=== PATIENT | male | born 1990 | race Caucasian/White ===

== ENCOUNTER → 2019-05-09 | Outpatient (REF) | payer OTHER ==
[2019-05-09 12:46] LABS: ALBUMIN 4.2 GM/DL (3.2-5.2); ALT/SGPT 149 U/L (12-78); BILIRUBIN,TOTAL 0.5 MG/DL (0.2-1.0); BLOOD UREA NITROGEN 23 MG/DL (7-18); CALCIUM LEVEL 9.8 MG/DL (8.5-10.1); CARBON DIOXIDE LEVEL 25 MEQ/L (21-32); CHLORIDE LEVEL 107 MEQ/L (98-107); CREATININE FOR GFR 0.83 MG/DL (0.70-1.30); GLOMERULAR FILTRATION RATE > 60.0 (>60); GLUCOSE, FASTING 114 MG/DL (70-100); POTASSIUM SERUM 4.1 MEQ/L (3.5-5.1); SODIUM LEVEL 140 MEQ/L (136-145); TOTAL PROTEIN 7.6 GM/DL (6.4-8.2)
[2019-05-09 13:13] LABS: HEMOGLOBIN A1c 6.1 %
== END ==
LOC: M SFHCLERA 08:39
PROVIDERS: ATTEND Nurse Practitioner Family
DX: Z13.1 Encounter for screening for diabetes mellitus (principal)

== ENCOUNTER → 2020-08-14 | Outpatient (CLI) | payer OTHER ==
[2020-08-14 09:32] LABS: BASO # 0.1 10^3/uL (0.0-0.2); EOS # 0.3 10^3/uL (0.0-0.5); EOS % 3.4 % (0.0-3.0); HEMATOCRIT 46.1 % (42.0-52.0); HEMOGLOBIN 15.1 g/dl (13.5-17.5); LYMPH # 1.9 10^3/uL (1.5-5.0); LYMPH % 26.3 % (24.0-44.0); MEAN CORPUSCULAR HEMOGLOBIN 31.1 pg (27.0-33.0); MEAN CORPUSCULAR HGB CONC 32.8 g/dl (32.0-36.5); MEAN CORPUSCULAR VOLUME 94.9 fl (80.0-96.0); MONO # 0.6 10^3/uL (0.0-0.8); MONO % 8.6 % (0.0-5.0); NEUTROPHILS # 4.4 10^3/uL (1.5-8.5); NEUTROPHILS % 60.3 % (36.0-66.0); PLATELET COUNT, AUTOMATED 325 10^3/uL (150-450); RED BLOOD COUNT 4.86 10^6/uL (4.30-6.10); WHITE BLOOD COUNT 7.3 10^3/uL (4.0-10.0)
[2020-08-14 10:10] LABS: ALBUMIN 4.2 GM/DL (3.2-5.2); ALT/SGPT 109 U/L (12-78); BILIRUBIN,TOTAL 0.5 MG/DL (0.2-1.0); BLOOD UREA NITROGEN 15 MG/DL (7-18); CALCIUM LEVEL 9.1 MG/DL (8.5-10.1); CARBON DIOXIDE LEVEL 27 MEQ/L (21-32); CHLORIDE LEVEL 108 MEQ/L (98-107); CREATININE FOR GFR 0.94 MG/DL (0.70-1.30); FREE T4 0.89 NG/DL (0.76-1.46); GLOMERULAR FILTRATION RATE > 60.0 (>60); GLUCOSE, FASTING 116 MG/DL (70-100); POTASSIUM SERUM 4.4 MEQ/L (3.5-5.1); SODIUM LEVEL 141 MEQ/L (136-145); TOTAL PROTEIN 7.3 GM/DL (6.4-8.2)
[2020-08-14 11:02] LABS: HEMOGLOBIN A1c 5.7 %
== END ==
LOC: M LAB 09:11
PROVIDERS: ATTEND Nurse Practitioner Family
DX: R07.9 Chest pain, unspecified (principal); R73.03 Prediabetes

== ENCOUNTER → 2020-09-03 | Outpatient (CLI) | payer OTHER ==
--- NOTE | 2020-09-03 07:51 | REP ---
INDICATION: ELEVATED LFT COMPARISON: None. TECHNIQUE: Real time nielson scale ultrasound examination using curved array transducer. FINDINGS: Liver is hyperechoic without focal hepatic lesion.. Pancreas is incompletely evaluated due to interposed bowel gas. The gallbladder is normal and without gallstones, wall thickening, or pericholecystic fluid. No biliary ductal dilatation is appreciated and the common bile duct measures 6.5 mm diameter. Right kidney is normal in reniform shape without hydronephrosis and measures 12.4 x 7.9 x 5.6 cm. No ascites in the visualized right upper quadrant. IMPRESSION: Hepatosteatosis. No focal hepatic lesion. <Electronically signed by Shay Brooke > 09/03/20 [id number]
== END ==
LOC: M RAD 06:32
PROVIDERS: ATTEND Nurse Practitioner Family
DX: K76.0 Fatty (change of) liver, not elsewhere classified (principal); R94.5 Abnormal results of liver function studies

== ENCOUNTER 2021-04-15 20:10 | Emergency (ER) | payer OTHER ==
[~2021-04-15] VITALS: Ht 188 cm; Wt 118.0 kg
[2021-04-15 20:14] VITALS: BP 134/83
== END 2021-04-15 21:20 | disposition left against medical advice (07) ==
LOC: M ED 20:10
DX: Z53.21 Procedure and treatment not carried out due to patient leaving prior to being seen by health care provider (principal)

== ENCOUNTER 2021-04-19 07:22 | Emergency (ER) | payer OTHER ==
[~2021-04-19] VITALS: Ht 188 cm; Wt 119.2 kg
[2021-04-19] MEDS ORDERED: ESOM40CA35 (07:38)
[2021-04-19] MEDS ORDERED: ACET-683 PO (07:39)
[2021-04-19] MEDS ORDERED: CLAR10CA3 PO (07:39)
[2021-04-19] MEDS ORDERED: NS 1,000 ML IV ONE (08:45)
[2021-04-19 09:15] LABS: BASO # 0.1 10^3/uL (0.0-0.2); BASO % 0.9 % (0.0-1.0); EOS # 0.1 10^3/uL (0.0-0.5); EOS % 1.3 % (0.0-3.0); HEMATOCRIT 43.4 % (42.0-52.0); HEMOGLOBIN 14.6 g/dl (13.5-17.5); LYMPH # 1.7 10^3/uL (1.5-5.0); LYMPH % 24.1 % (24.0-44.0); MEAN CORPUSCULAR HEMOGLOBIN 31.1 pg (27.0-33.0); MEAN CORPUSCULAR HGB CONC 33.6 g/dl (32.0-36.5); MEAN CORPUSCULAR VOLUME 92.5 fl (80.0-96.0); MONO # 0.8 10^3/uL (0.0-0.8); MONO % 11.4 % (2.0-8.0); NEUTROPHILS # 4.3 10^3/uL (1.5-8.5); NEUTROPHILS % 61.9 % (36.0-66.0); PLATELET COUNT, AUTOMATED 323 10^3/uL (150-450); RED BLOOD COUNT 4.69 10^6/uL (4.30-6.10)
[2021-04-19 09:36] LABS: ALBUMIN 3.6 GM/DL (3.2-5.2); ALT/SGPT 80 U/L (12-78); BILIRUBIN,DIRECT < 0.1 MG/DL (0.0-0.2); BILIRUBIN,TOTAL 0.4 MG/DL (0.2-1.0); LIPASE 82 U/L (73-393)
[2021-04-19] MEDS ORDERED: ISOVUE-370 76% 100ML VIAL As Ordered ONE (09:59)
--- NOTE | 2021-04-19 10:28 | REP ---
INDICATION: llq pain, fevers COMPARISON: None. TECHNIQUE: CT Scan of the abdomen and pelvis was performed with intravenous administration of 100 cc of Isovue 370, without oral contrast. Sagittal and coronal reconstruction images are performed. FINDINGS: Lung bases: Unremarkable. Liver: There is a hepatomegaly, the length of the liver is approximately 20 cm, with diffuse fatty infiltration. Gallbladder: Unremarkable. Spleen: Normal. Adrenals: Normal. Pancreas: Normal. Kidneys: Normal. Small and large bowel: Unremarkable. Free fluid: None. Abdominal aorta: No aneurysm or dissection. Adenopathy: None. Appendix: Not inflamed. Osseous structures: The vertebral bodies demonstrate no compression fracture. There is a Schmorl's node at the superior endplate of L2. Pelvis: No mass. IMPRESSION: Hepatomegaly with diffuse fatty infiltration of the liver. No acute findings. <Electronically signed by Etienne Camacho > 04/19/21 [id number]
[2021-04-19 10:50] VITALS: BP 138/73
[2021-04-19] MEDS ORDERED: KETOROLAC 30 MG/ML 1ML VIAL IV ONE (12:05)
--- NOTE | 2021-04-20 12:10 | ED PDOC ---
Post-Departure Follow-Up pt needs fu for ct abd/p reading. certified letter sent. obtain pcp name and fax . if no pcp refer to [facility] and fax Dariel Lyles MD Apr 20, 2021 12:10
== END 2021-04-19 13:38 | disposition home or self-care (01) ==
LOC: M ED 07:22
DX: K76.0 Fatty (change of) liver, not elsewhere classified (principal); K21.9 Gastro-esophageal reflux disease without esophagitis; E11.9 Type 2 diabetes mellitus without complications; Z79.899 Other long term (current) drug therapy
CPT/HCPCS: 74177; 80047; 80076; 83690; 85025; 96361; 96374; 99284; J1885; Q9967